=== PATIENT | female | born 1960 | race Hispanic/Latino ===

== ENCOUNTER 2018-12-30 05:25 | Emergency (ER) | payer MEDICARE ==
[~2018-12-30 05:25] MED LIST: ASPI-1181 PO; CHOL50004 PO; CLON0.1T PO; FERS325 PO; FOLIC ACID PO; ISOS30TA6 PO; LINA5TAB PO; METO100T7 PO; MORP15TA70 PO; MYCO250C7 PO; TACR0.5C7 PO; TYL3 PO; VITAMIN B6 PO
[2018-12-30] MEDS ORDERED: MORPHINE SULFATE 4 MG/1ML SYG ONE ×2 (08:11→08:14)
[2018-12-30] MEDS ORDERED: TETANUS/DIPHTHERIA TOXOID [ADULT] 0.5 ML VIAL IM ONE (08:15)
== END 2018-12-30 09:06 | disposition home or self-care (01) ==
LOC: EDH 05:25
DX: S01.01XA Laceration without foreign body of scalp, initial encounter (principal); M54.2 Cervicalgia; E11.9 Type 2 diabetes mellitus without complications; I10 Essential (primary) hypertension; Z95.1 Presence of aortocoronary bypass graft; W06.XXXA Fall from bed, initial encounter; Y93.89 Activity, other specified; Y92.89 Other specified places as the place of occurrence of the external cause; Y99.8 Other external cause status
CPT/HCPCS: 12001; 70450; 72125; 90471; 90714; 96374; 99284; J2270

== ENCOUNTER 2020-10-05 05:52 | Day surgery (SDC) | payer MEDICARE ==
[2020-10-05] VITALS (12 sets, daily range): BP systolic 95–124; BP diastolic 48–69
[~2020-10-05] VITALS: Ht 157.5 cm; Wt 99.8 kg
[~2020-10-05 05:52] MED LIST changes: +AMLO2.5T4 PO; -ASPI-1181 PO; -CHOL50004 PO; +CHOL500062 PO; -CLON0.1T PO; -FERS325 PO; +GLIP10TA9 PO; -ISOS30TA6 PO; +ISOS30TA92 PO; +LISI-809 PO; -MORP15TA70 PO; +OXYC-38 PO; +PERCT PO; -TYL3 PO; -VITAMIN B6 PO
[2020-10-05] MEDS ORDERED: SODIUM CHLORIDE 0.9% 1000ML 1,000 ML IV ONE (06:25)
[2020-10-05] MEDS ORDERED: MIDAZOLAM HCL 1 MG/ML 2ML VIAL ONE (07:15)
[2020-10-05] MEDS ORDERED: PROPOFOL 10 MG/ML 20ML VIAL IV ONE (07:16)
[2020-10-05] MEDS ORDERED: LIDOCAINE HCL 1% 20 ML VIAL ONE (07:16)
[2020-10-05] MEDS ORDERED: PHENYLEPHRINE HCL 10 MG/ML 1ML VIAL IV ONE (07:16)
== END 2020-10-05 09:20 | disposition home or self-care (01) ==
LOC: DAH 05:52 → ENDO 05:52
PROVIDERS: ATTEND Internal Medicine Gastroenterology
DX: R19.5 Other fecal abnormalities (principal); Z20.828 Contact with and (suspected) exposure to other viral communicable diseases; R14.0 Abdominal distension (gaseous); K63.5 Polyp of colon; K29.51 Unspecified chronic gastritis with bleeding; K31.89 Other diseases of stomach and duodenum; I11.0 Hypertensive heart disease with heart failure; I50.9 Heart failure, unspecified; E11.9 Type 2 diabetes mellitus without complications; M06.9 Rheumatoid arthritis, unspecified; I25.10 Atherosclerotic heart disease of native coronary artery without angina pectoris; D64.9 Anemia, unspecified; Z95.1 Presence of aortocoronary bypass graft; Z90.49 Acquired absence of other specified parts of digestive tract; Z79.899 Other long term (current) drug therapy; Z86.010 Personal history of colon polyps; Z79.82 Long term (current) use of aspirin; Z98.890 Other specified postprocedural states; Z80.0 Family history of malignant neoplasm of digestive organs; Z87.891 Personal history of nicotine dependence
CPT/HCPCS: 43239; 45385; 82948 ×2; 88305; 88342; 93005; A4215 ×2; A4221; A4222; A4606; A4620; A4657; A4663; C9803; J2250; J2370; J2704; J7030; U0003

== ENCOUNTER → 2021-03-03 | Outpatient (CLI) | payer MEDICARE ==
[~2021-03-03] MED LIST changes: -AMLO2.5T4 PO
== END | disposition home or self-care (01) ==
LOC: RAH 10:53
PROVIDERS: ATTEND Internal Medicine Gastroenterology
DX: R14.0 Abdominal distension (gaseous) (principal)
CPT/HCPCS: 78264; A9541